=== PATIENT | male | born 1985 | race African-American/Black ===

== ENCOUNTER 2022-07-11 06:41 | Inpatient (IN) ==
[2022-07-11] MEDS ORDERED: SODIUM CHLORIDE 0.9% 1,000 ML IV STA ×2 (07:01→09:07)
[2022-07-11] MEDS ORDERED: HYDROmorphone 1 MG/1 ML SYRINGE IV STA (07:01)
[2022-07-11] MEDS ORDERED: ONDANSETRON 4 MG/2 ML VIAL IV STA (07:01)
[2022-07-11 07:14] LABS: Basophils % 0.3 % (0.0-0.8); Eosinophils % 0.2 % (0.00-10.9); Hematocrit 47.3 VOL% (42.0-52.0); Hemoglobin 15.2 GM/DL (14.0-18.0); Immature Granulocytes % 0.4 %; Immature Granulocytes Absolute 0.05 #; Lymphocytes # 1.1 10*3/uL (1.4-4.0); Lymphocytes % 9.1 % (21.2-54.2); Mean Corpuscular HGB Conc 32.1 GM/DL (32-36); Mean Corpuscular Volume 79.5 FL (87-102); Mean Platelet Volume 9.1 FL (9.6-12.0); Monocytes # 1.3 10*3/uL (0.11-0.8); Monocytes % 11.1 % (1.7-12.7); Neutrophils % 78.9 % (38.7-73.9); Platelet Count 367 T/CUMM (130-400); Red Blood Count 5.95 MC/CUMM (3.8-5.5); Red Cell Distribution Width 17.2 % (9.3-17.3); White Blood Count 11.8 T/CUMM (4-12)
[2022-07-11 07:37] LABS: Alanine Aminotransferase 63 U/L (16-61); Albumin 4.6 G/DL (3.4-5.0); Alkaline Phosphatase 96 U/L (45-117); Aspartate Amino Transferase 57 U/L (0-37); Blood Urea Nitrogen 34 MG/DL (7-18); Calcium 10.8 MG/DL (8.5-10.1); Carbon Dioxide 21 MMOL/L (21-32); Chloride 94 MMOL/L (98-107); Glucose 129 MG/DL (74-106); Osmolality,Calculated 273.5 MOS/KG (273-304); Potassium 3.5 MMOL/L (3.5-5.1); Sodium 132 MMOL/L (136-145); Total Protein 10.9 G/DL (6.4-8.2)
[2022-07-11 08:07] LABS: Barbiturates Screen,Urine Negative (Negative); Benzodiazepines Screen,Urine Negative (Negative); Cannabinoid Screen,Urine Positive (Negative); Opiate Screen,Urine Negative (Negative); Phencyclidine Screen,Urine Negative (Negative)
[2022-07-11] MEDS ORDERED: PROMETHAZINE 25 MG/1 ML VIAL IM PRN (09:04)
[2022-07-11] MEDS ORDERED: DEXTROSE 10% 250 ML BAG IV PRN (09:04)
[2022-07-11] MEDS ORDERED: ONDANSETRON 4 MG/2 ML VIAL IV PRN (09:04)
[2022-07-11] MEDS ORDERED: GLUCAGON 1 MG VIAL IM PRN (09:04)
[2022-07-11 10:09] LABS: Thyroid Stimulating Hormone 2.91 uIU/ml (0.358-3.74)
[2022-07-11] MEDS: ENOXAPARIN 40 MG/0.4 ML SYRINGE SUBCUT SCH (10:29)
[2022-07-11 10:39] LABS: Hepatitis B Core IgM Quant 0.14 Index; Hepatitis B Surface Ag Quant < 0.10 Index; Hepatitis B Surface Ag Result Non-Reactive (NonReactive); Hepatitis C Virus Ab Quant 0.17 Index; Hepatitis C Virus Ab Result Non-Reactive (NonReactive)
[2022-07-11] MEDS: LORazepam 2 MG/1 ML VIAL IV SCH ×2 (10:43→14:37)
[2022-07-11] MEDS ORDERED: POTASSIUM CHLORIDE INJ 40 MEQ in LACTATED RINGERS 1,000 ML IV SCH (11:00)
[2022-07-11] MEDS: LORazepam 1 MG TABLET PO SCH (23:50)
[2022-07-12] MEDS: LORazepam 2 MG/1 ML VIAL IV SCH (01:31)
[2022-07-12] MEDS: LORazepam 1 MG TABLET PO SCH ×3 (01:32→10:10)
[2022-07-12 06:11] LABS: Basophils % 0.3 % (0.0-0.8); Eosinophils # 0.1 10*3/uL (0.0-0.87); Eosinophils % 0.9 % (0.00-10.9); Hematocrit 39.9 VOL% (42.0-52.0); Immature Granulocytes % 0.7 %; Immature Granulocytes Absolute 0.05 #; Lymphocytes # 1.1 10*3/uL (1.4-4.0); Lymphocytes % 14.8 % (21.2-54.2); Mean Corpuscular HGB Conc 32.1 GM/DL (32-36); Mean Corpuscular Volume 80.3 FL (87-102); Mean Platelet Volume 9.4 FL (9.6-12.0); Neutrophils % 70.3 % (38.7-73.9); Platelet Count 297 T/CUMM (130-400); Red Blood Count 4.97 MC/CUMM (3.8-5.5); Red Cell Distribution Width 15.4 % (9.3-17.3); White Blood Count 7.6 T/CUMM (4-12)
[2022-07-12 06:16] LABS: Hemoglobin 12.8 GM/DL (14.0-18.0)
[2022-07-12 06:33] LABS: Albumin 3.6 G/DL (3.4-5.0); Bilirubin,Total 1.8 MG/DL (0.20-1.00); Calcium 9.4 MG/DL (8.5-10.1); Osmolality,Calculated 274.2 MOS/KG (273-304); Potassium 3.4 MMOL/L (3.5-5.1); Total Protein 8.5 G/DL (6.4-8.2)
[2022-07-12 08:14] VITALS: BP 101/62
[2022-07-12] MEDS ORDERED: POTASSIUM CHLORIDE 20 MEQ TABLET PO ONE (08:28)
[2022-07-12] MEDS ORDERED: MULTIVITAMIN (CENTRUM) TABLET PO SCH (09:00)
[2022-07-12] MEDS ORDERED: THIAMINE 200 MG/2 ML VIAL IV SCH (09:00)
[2022-07-12] MEDS ORDERED: FOLIC ACID 1 MG TABLET PO SCH (09:00)
[2022-07-12] MEDS: ENOXAPARIN 40 MG/0.4 ML SYRINGE SUBCUT SCH (10:10)
== END 2022-07-12 09:30 | disposition left against medical advice (07) | DRG 683 ==
LOC: N.ED 06:41 → N.EDINP 09:04 → SUATTDRO 09:04 → N.5E 09:41
PROVIDERS: ADMIT Internal Medicine; ATTEND Internal Medicine